=== PATIENT | male | born 1960 | race Caucasian/White ===

== ENCOUNTER 2017-01-25 08:06 | Day surgery (SDC) | payer BC ==
[~2017-01-25 08:06] MED LIST: Lidocaine 1% with EPINEPHrine 1:100,000 50 ML MDV ONE; Sodium Chloride 0.9% 10 ML ONE; Sodium Tetradecyl Sulfate 1% 20 MG/2 ML SDV ONE
[2017-01-25] MEDS ORDERED: Sodium Chloride 0.9% 1,000 ML IV SCH (08:30)
[2017-01-25] MEDS ORDERED: Lidocaine 1% w/EPINEPHrine 50 ML, Sodium Bicarbonate 5 MEQ in Sodium Chloride 0.9% 950 ML INJECT SCH (09:15)
[2017-01-25] MEDS ORDERED: Midazolam 1 MG/ML 2 ML SDV ONE (09:44)
[2017-01-25] MEDS ORDERED: fentaNYL 100 MCG/2 ML SDV ONE (09:44)
[2017-01-25] MEDS ORDERED: Propofol 200 MG/20 ML SDV ONE ×2 (09:44→09:59)
[2017-01-25 11:35] VITALS: BP 142/93
--- NOTE | 2017-01-26 09:24 | OR ---
DATE OF PROCEDURE: 01/25/2017 PROCEDURE: 1. Radiofrequency ablation of left greater saphenous vein. 2. Left leg, sclerotherapy, multiple. COMPLICATIONS: None. ESTERS AND EMULSIFIERS SUPERVISOR: None. ANESTHESIA: MAC. PREOPERATIVE DIAGNOSIS: Venous/varicose vein insufficiency with inflammation and pain. POSTOPERATIVE DIAGNOSIS: Venous/varicose vein insufficiency with inflammation and pain. PROCEDURE IN DETAIL: The patient was placed in supine position. The left GSV was accessed at the distal aspect of the calf. This was unable to be accessed any further distally due to tortuousities. After the leg was prepped and draped, the greater saphenous vein was accessed using a 21- gauge needle, then exchanged for a 35,000th wire, then exchanged for a 7-[place] sheath. The RFA probe was then advanced to 3 cm from saphenofemoral junction. This will be verified a second and third time. Tumescent fluid was injected in 1 cm jacket around, this also verified a second and third time. Direct even pressure was held, as the RFA probe was deployed x2 proximally and distally and x1 in all segments. After the sheath and device were removed, direct pressure was held for 10 minutes, and Dermabond was applied. Sclerotherapy was then performed in the left leg using 0.33% sodium tetradactyl. There was approximately 6 on the left ranging, length of up to 4 cm. No more than 2 mL was injected in one location. This was drawn back only always to ensure intravascular injection only. The dressings were applied. The patient tolerated the procedure well. Moe Balbuena MD /[id number]
== END 2017-01-25 11:30 | disposition home or self-care (01) ==
LOC: JP.SDS 08:06
PROVIDERS: ATTEND Surgery
DX: I87.2 Venous insufficiency (chronic) (peripheral) (principal); I83.812 Varicose veins of left lower extremity with pain; I83.12 Varicose veins of left lower extremity with inflammation; Z88.1 Allergy status to other antibiotic agents; Z88.8 Allergy status to other drugs, medicaments and biological substances; I10 Essential (primary) hypertension; F41.9 Anxiety disorder, unspecified; E78.5 Hyperlipidemia, unspecified
CPT/HCPCS: 36471; 36475; J1642; J2250; J2704; J3010; J7040; J7050; J3490